=== PATIENT | male | born 1985 | race Caucasian/White ===

== ENCOUNTER 2017-11-12 21:20 | Emergency (ER) | payer OTHER ==
[~2017-11-12] VITALS: Ht 185.4 cm; Wt 79.4 kg
[2017-11-13] MEDS ORDERED: KETO10TA2 PO (07:11)
== END 2017-11-13 07:04 | disposition home or self-care (01) ==
LOC: ER 21:20
DX: S32.512A Fracture of superior rim of left pubis, initial encounter for closed fracture (principal); W17.89XA Other fall from one level to another, initial encounter; Y93.89 Activity, other specified; Y92.89 Other specified places as the place of occurrence of the external cause; Y99.8 Other external cause status

== ENCOUNTER → 2017-11-15 | Emergency (ER) | payer OTHER ==
[~2017-11-15] VITALS: Ht 185.4 cm; Wt 81.6 kg
[~2017-11-15] MED LIST: KETO10TA2 PO
== END | disposition home or self-care (01) ==
LOC: ER 21:58
DX: L27.1 Localized skin eruption due to drugs and medicaments taken internally (principal); T39.8X5A Adverse effect of other nonopioid analgesics and antipyretics, not elsewhere classified, initial encounter